=== PATIENT | male | born 1960 | race Caucasian/White ===

== ENCOUNTER 2020-11-22 12:07 | Emergency (ER) | payer BC, OTHER ==
[2020-11-22] MEDS ORDERED: Ibuprofen 800 MG TAB ONE (12:30)
== END 2020-11-22 13:03 | disposition home or self-care (01) ==
LOC: BURERS 12:07
DX: R50.9 Fever, unspecified (principal); R05 Cough; R53.83 Other fatigue; Z20.822 Contact with and (suspected) exposure to COVID-19
CPT/HCPCS: 99283